=== PATIENT | male | born 1950 | race Caucasian/White ===

== ENCOUNTER → 2021-06-09 | Outpatient (CLI) | payer OTHER ==
[~2021-06-09] MED LIST: ASPI-543 PO; BENA10TA15 PO; CHOL1TAB22 PO; CLOP75TA70 PO; COEN400C8 PO; FURO20TA3 PO; GABA300C10 PO; GABA400C11 PO; GEMF-19 PO; HYDR-4833 PO; IODIXANOL 320MG/ML 100ML BTL IV ONE; MET50T PO; NAP500T PO; NIAC500T71 PO; POTA10TA32 PO; RIS1T PO; ROSU5TAB5 PO; TAMS0.4C36 PO; TRAM100T37 PO
[2021-06-09 09:13] VITALS: BP 104/69
[2021-06-09 09:33] VITALS: BP 123/75
[2021-06-09 11:47] LABS: Basophils # (auto) 0.1 10 ^3/uL (0-0.2); Basophils % (auto) 1.6 % (0.0-2.0); Eosinophils # (auto) 0.3 10 ^3/uL (0-0.8); Eosinophils % (auto) 4.9 % (0.0-7.0); Hematocrit 41.9 % (41.0-53.0); Lymphocytes # (auto) 0.9 10 ^3/uL (0.4-5.4); Lymphocytes % (auto) 14.5 % (10.0-50.0); Mean Corpuscular Hemoglobin 27.3 pg (28.0-32.0); Mean Corpuscular Hgb Conc. 33.4 g/dL (32.0-36.0); Mean Corpuscular Volume 81.9 fL (80.0-100.0); Monocytes # (auto) 0.7 10 ^3/uL (0-1.3); Monocytes % (auto) 11.1 % (0.0-12.0); Neutrophils # (auto) 4.2 10 ^3/uL (1.6-8.6); Neutrophils % (auto) 67.9 % (37.0-80.0); Nucleated Red Blood Cells % 0.1 %; Red Blood Cells 5.12 10^6/uL (4.5-5.90); Red Cell Distribution Width 15.8 % (11.8-14.3); White Blood Cell 6.1 10^3/uL (4.4-10.8)
[2021-06-09 11:50] LABS: Potassium 3.6 mmol/L (3.5-5.1)
[2021-06-09 11:51] LABS: INR 1.13 (0.9-1.15); Partial Thromboplastin Time 30.8 sec (23.6-33.0)
[2021-06-09 11:58] LABS: BUN/Creatinine Ratio 9.3; Calcium 9.4 mg/dL (8.5-10.1)
== END | disposition home or self-care (01) ==
LOC: Rad HDHVI 08:55
PROVIDERS: ATTEND Internal Medicine Cardiovascular Disease
DX: Z01.812 Encounter for preprocedural laboratory examination (principal); R94.31 Abnormal electrocardiogram [ECG] [EKG]; R53.82 Chronic fatigue, unspecified; R42 Dizziness and giddiness; R53.1 Weakness
CPT/HCPCS: 36415; 71046; 80048; 85025; 85610; 85730; 93005; G0463; Q9967

== ENCOUNTER 2021-06-11 09:13 | Day surgery (SDC) | payer OTHER ==
[~2021-06-11] VITALS: Ht 175.3 cm; Wt 83.9 kg
[~2021-06-11 09:13] MED LIST changes: -BENA10TA15 PO; -GABA300C10 PO; -GEMF-19 PO; -IODIXANOL 320MG/ML 100ML BTL IV ONE; -MET50T PO; -NAP500T PO; -NIAC500T71 PO; -TRAM100T37 PO
[2021-06-11] MEDS ORDERED: IOHEXOL 350 MG/ML 100ML IJ ONE ×2 (10:37→11:40)
[2021-06-11] MEDS ORDERED: LIDOCAINE 2%HCL (LOCAL ANESTH.) INJ 20ML MDV ONE (10:37)
[2021-06-11] MEDS ORDERED: ANGIOMAX 250 MG VIAL IV ONE (10:41)
[2021-06-11] MEDS ORDERED: fentaNYL CITRATE 100 MCG/2 ML VL ONE (10:42)
[2021-06-11] MEDS ORDERED: MIDAZOLAM HCL 2MG/2ML 2ml VIAL (1mg/ml) ONE (10:42)
[2021-06-11] MEDS ORDERED: SODIUM CHL 0.9% 50 ML ONE (10:42)
[2021-06-11] MEDS ORDERED: CLOPIDOGREL BISULFATE 75 MG TAB ONE (11:53)
[2021-06-11] MEDS ORDERED: HYDROcodone-ACET 5/325MG TAB PO PRN (12:30)
[2021-06-11] MEDS ORDERED: ACETAMINOPHEN 500 MG TAB PO PRN (12:30)
[2021-06-11] MEDS ORDERED: ONDANSETRON HCL 4 MG/2 ML VIAL IV PRN (12:30)
== END 2021-06-11 14:38 | disposition home or self-care (01) ==
LOC: CATH 09:13
PROVIDERS: ATTEND Internal Medicine Cardiovascular Disease
DX: I70.211 Atherosclerosis of native arteries of extremities with intermittent claudication, right leg (principal)
CPT/HCPCS: 37224; 75716; 93458; C1725; C1760; C1769; C1876; C1894; J0583; J1644; J2250; J3010; J7030; Q9967; U0003; 37220; 99152; 99153